=== PATIENT | male | born 1955 | race Caucasian/White ===

== ENCOUNTER → 2021-10-15 | Outpatient (CLI) | payer MEDICAID ==
[~2021-10-15] MED LIST: ASPI81CH43
[2021-10-15 07:31] LABS: Basophils # (auto) 0 10 ^3/uL (0-0.2); Basophils % (auto) 0.5 % (0.0-2.0); Eosinophils # (auto) 0.1 10 ^3/uL (0-0.8); Eosinophils % (auto) 1.6 % (0.0-7.0); Hematocrit 46.3 % (41.0-53.0); Hemoglobin 16.6 g/dL (13.5-17.5); Lymphocytes # (auto) 2.1 10 ^3/uL (0.4-5.4); Lymphocytes % (auto) 29.8 % (10.0-50.0); Mean Corpuscular Hemoglobin 33.3 pg (28.0-32.0); Mean Corpuscular Hgb Conc. 35.9 g/dL (32.0-36.0); Mean Corpuscular Volume 92.7 fL (80.0-100.0); Monocytes # (auto) 0.6 10 ^3/uL (0-1.3); Monocytes % (auto) 9.1 % (0.0-12.0); Neutrophils # (auto) 4.1 10 ^3/uL (1.6-8.6); Nucleated Red Blood Cells % 0.2 %; Red Blood Cells 4.99 10^6/uL (4.5-5.90); Red Cell Distribution Width 12.8 % (11.8-14.3)
[2021-10-15 08:53] LABS: Albumin 3.7 g/dL (3.4-5.0); Calcium 8.9 mg/dL (8.5-10.1); Potassium 3.5 mmol/L (3.5-5.1)
[2021-10-15 08:58] LABS: BUN/Creatinine Ratio 17.7; Bilirubin, Total 0.8 mg/dL (0.2-1.0); Total Protein 8.4 g/dL (6.4-8.2)
== END | disposition home or self-care (01) ==
LOC: LAB 06:41
PROVIDERS: ATTEND Student in an Organized Health Care Education/Training Program
DX: Z00.00 Encounter for general adult medical examination without abnormal findings (principal); I10 Essential (primary) hypertension
CPT/HCPCS: 36415; 80053; 80061; 83036; 84153; 85025

== ENCOUNTER → 2022-01-04 | Outpatient (CLI) | payer MEDICAID | END | disposition home or self-care (01) | LOC: LAB 08:57 | PROVIDERS: ATTEND Student in an Organized Health Care Education/Training Program | DX: R74.01 Elevation of levels of liver transaminase levels (principal) | CPT/HCPCS: 36415; 80074 ==

== ENCOUNTER 2022-05-08 11:08 | Outpatient (CLI) | payer OTHER, MEDICAID ==
[~2022-05-08] VITALS: Ht 177.8 cm; Wt 80.7 kg
[2022-05-08 11:32] LABS: Basophils # (auto) 0.1 10 ^3/uL (0-0.2); Basophils % (auto) 0.9 % (0.0-2.0); Eosinophils # (auto) 0.2 10 ^3/uL (0-0.8); Eosinophils % (auto) 2.4 % (0.0-7.0); Hematocrit 43.6 % (41.0-53.0); Hemoglobin 14.7 g/dL (13.5-17.5); Lymphocytes # (auto) 1.8 10 ^3/uL (0.4-5.4); Lymphocytes % (auto) 27.3 % (10.0-50.0); Mean Corpuscular Hemoglobin 30.9 pg (28.0-32.0); Mean Corpuscular Hgb Conc. 33.8 g/dL (32.0-36.0); Mean Corpuscular Volume 91.2 fL (80.0-100.0); Monocytes # (auto) 0.7 10 ^3/uL (0-1.3); Monocytes % (auto) 10.9 % (0.0-12.0); Neutrophils # (auto) 3.8 10 ^3/uL (1.6-8.6); Neutrophils % (auto) 58.5 % (37.0-80.0); Nucleated Red Blood Cells % 0.1 %; Red Blood Cells 4.78 10^6/uL (4.5-5.90); Red Cell Distribution Width 13.4 % (11.8-14.3); White Blood Cell 6.6 10^3/uL (4.4-10.8)
[2022-05-08 11:43] LABS: INR 1.06 (0.9-1.15); Partial Thromboplastin Time 30.5 sec (24.6-33.4)
[2022-05-08 12:04] LABS: Albumin 3.6 g/dL (3.4-5.0); BUN/Creatinine Ratio 16.7; Calcium 8.3 mg/dL (8.5-10.1); Potassium 3.6 mmol/L (3.5-5.1)
[2022-05-08 12:07] LABS: Bilirubin, Total 0.5 mg/dL (0.2-1.0); Total Protein 8.1 g/dL (6.4-8.2)
[2022-05-09] MEDS ORDERED: AMLO-496 PO (10:50)
[2022-05-09] MEDS ORDERED: ROSU40TA PO (10:50)
[2022-05-09] MEDS ORDERED: ALBUAER3 IN (10:50)
[2022-06-21] MEDS ORDERED: diphenhdrAMINE HCL 50 MG/1 ML VL IV ONE ×2 (14:50→14:52)
[2022-06-21] MEDS ORDERED: fentaNYL CITRATE 100 MCG/2 ML VL IV ONE ×3 (14:50→15:10)
[2022-06-21] MEDS ORDERED: MIDAZOLAM HCL 5 MG/ML-1ML VIAL IV ONE ×3 (14:50→15:10)
[2022-06-21 15:55] VITALS: BP 129/69
== END 2022-05-08 11:22 | disposition home or self-care (01) ==
LOC: LAB 11:08 → EDSTATUS 05-10 12:30
PROVIDERS: ATTEND Internal Medicine Gastroenterology
DX: R19.5 Other fecal abnormalities (principal); D69.9 Hemorrhagic condition, unspecified; E83.10 Disorder of iron metabolism, unspecified; Z01.812 Encounter for preprocedural laboratory examination; Z20.822 Contact with and (suspected) exposure to COVID-19
CPT/HCPCS: 36415; 80053; 85025; 85610; 85730; U0003

== ENCOUNTER → 2022-06-21 | Day surgery (SDC) | payer OTHER, MEDICAID ==
[2022-06-19 12:36] LABS: Basophils # (auto) 0 10 ^3/uL (0-0.2); Basophils % (auto) 0.4 % (0.0-2.0); Eosinophils # (auto) 0.2 10 ^3/uL (0-0.8); Eosinophils % (auto) 2.3 % (0.0-7.0); Hematocrit 43.6 % (41.0-53.0); Hemoglobin 14.7 g/dL (13.5-17.5); Lymphocytes # (auto) 2.1 10 ^3/uL (0.4-5.4); Lymphocytes % (auto) 29.9 % (10.0-50.0); Mean Corpuscular Hemoglobin 30.4 pg (28.0-32.0); Mean Corpuscular Hgb Conc. 33.9 g/dL (32.0-36.0); Mean Corpuscular Volume 89.8 fL (80.0-100.0); Monocytes # (auto) 0.8 10 ^3/uL (0-1.3); Monocytes % (auto) 10.7 % (0.0-12.0); Neutrophils % (auto) 56.7 % (37.0-80.0); Nucleated Red Blood Cells % 0.1 %; Red Blood Cells 4.85 10^6/uL (4.5-5.90); Red Cell Distribution Width 13.3 % (11.8-14.3); White Blood Cell 7.1 10^3/uL (4.4-10.8)
[2022-06-19 12:50] LABS: INR 1.05 (0.9-1.15); Partial Thromboplastin Time 30.4 sec (24.6-33.4)
[2022-06-19 13:29] LABS: Albumin 3.8 g/dL (3.4-5.0); BUN/Creatinine Ratio 14.4; Bilirubin, Total 0.4 mg/dL (0.2-1.0); Calcium 9.4 mg/dL (8.5-10.1); Potassium 3.6 mmol/L (3.5-5.1); Total Protein 8.5 g/dL (6.4-8.2)
[~2022-06-21] MED LIST changes: +ALBUAER3 IN; +AMLO-496 PO; +FLUMAZENIL 0.1 MG/ML INJ 10ML MDV IV ONE; +NALOXONE HCL 0.4 MG/ML VIAL ONE; +ROSU40TA PO; +SODIUM CHLORIDE LOCK 10 ML ONE
[2022-06-21] MEDS: diphenhdrAMINE HCL 50 MG/1 ML VL ONE ×2 (14:50→14:52)
[2022-06-21] MEDS: fentaNYL CITRATE 100 MCG/2 ML VL ONE ×3 (14:50→15:10)
[2022-06-21] MEDS: MIDAZOLAM HCL 5 MG/ML-1ML VIAL ONE ×3 (14:50→15:10)
[2022-06-21 15:55] VITALS: BP 129/69
== END | disposition home or self-care (01) ==
LOC: GI 13:40
PROVIDERS: ATTEND Internal Medicine Gastroenterology
DX: R19.5 Other fecal abnormalities (principal); K64.0 First degree hemorrhoids; Q27.39 Arteriovenous malformation, other site; I10 Essential (primary) hypertension; Z88.2 Allergy status to sulfonamides; Z98.890 Other specified postprocedural states; K63.5 Polyp of colon; Z20.822 Contact with and (suspected) exposure to COVID-19
CPT/HCPCS: 36415; 45385; 80053; 82962; 85025; 85610; 85730; 88305; J1200; J2250; J3010; U0003; 99152; 99153

== ENCOUNTER → 2022-12-05 | Outpatient (CLI) | payer OTHER, MEDICAID ==
[~2022-12-05] MED LIST changes: -FLUMAZENIL 0.1 MG/ML INJ 10ML MDV IV ONE; -NALOXONE HCL 0.4 MG/ML VIAL ONE; -SODIUM CHLORIDE LOCK 10 ML ONE
[2022-12-05 07:06] LABS: Basophils # (auto) 0 10 ^3/uL (0-0.2); Eosinophils # (auto) 0.2 10 ^3/uL (0-0.8); Eosinophils % (auto) 3.2 % (0.0-7.0); Lymphocytes # (auto) 2.2 10 ^3/uL (0.4-5.4); Monocytes # (auto) 0.7 10 ^3/uL (0-1.3); Neutrophils # (auto) 2.8 10 ^3/uL (1.6-8.6); Nucleated Red Blood Cells % 0.1 %
[2022-12-05 07:08] LABS: Basophils % (auto) 0.5 % (0.0-2.0); Hematocrit 37.8 % (41.0-53.0); Hemoglobin 12.5 g/dL (13.5-17.5); Lymphocytes % (auto) 37.5 % (10.0-50.0); Mean Corpuscular Hemoglobin 25.9 pg (28.0-32.0); Mean Corpuscular Hgb Conc. 33.1 g/dL (32.0-36.0); Mean Corpuscular Volume 78.3 fL (80.0-100.0); Monocytes % (auto) 11.1 % (0.0-12.0); Neutrophils % (auto) 47.7 % (37.0-80.0); Red Blood Cells 4.83 10^6/uL (4.5-5.90); Red Cell Distribution Width 15.2 % (11.8-14.3); White Blood Cell 5.9 10^3/uL (4.4-10.8)
[2022-12-05 07:24] LABS: INR 1.07 (0.9-1.15)
[2022-12-05 08:07] LABS: Albumin 3.7 g/dL (3.4-5.0); Calcium 8.7 mg/dL (8.5-10.1); Potassium 3.5 mmol/L (3.5-5.1)
[2022-12-05 08:13] LABS: BUN/Creatinine Ratio 10.9 (10.0-20.0); Bilirubin, Total 0.3 mg/dL (0.2-1.0); Total Protein 8.4 g/dL (6.4-8.2)
== END | disposition home or self-care (01) ==
LOC: LAB 06:47
PROVIDERS: ATTEND Student in an Organized Health Care Education/Training Program
DX: K74.60 Unspecified cirrhosis of liver (principal); R94.5 Abnormal results of liver function studies; R79.89 Other specified abnormal findings of blood chemistry; E79.8 Other disorders of purine and pyrimidine metabolism; F17.200 Nicotine dependence, unspecified, uncomplicated
CPT/HCPCS: 36415; 80053; 80061; 82728; 85025; 85610; 86038

== ENCOUNTER 2023-06-09 04:54 | Inpatient (IN) | payer OTHER, MEDICAID ==
[~2023-06-09] VITALS: Ht 172.7 cm; Wt 77.3 kg
[2023-06-09] VITALS (11 sets, daily range): BP systolic 100–125; BP diastolic 46–71; PULSE 81–108; RESP 15–19; TEMP 98.1–100.1; O2SAT 95–99
[~2023-06-09 04:54] MED LIST changes: -AMLO-496 PO; +AMLO1TAB23 PO; -ROSU40TA PO; +ROSU40TA81 PO
[2023-06-09 07:54] LABS: Basophils # (auto) 0 10 ^3/uL (0-0.2); Basophils % (auto) 0.3 % (0.0-2.0); Eosinophils # (auto) 0 10 ^3/uL (0-0.8); Eosinophils % (auto) 0.1 % (0.0-7.0); Lymphocytes # (auto) 0.6 10 ^3/uL (0.4-5.4); Nucleated Red Blood Cells % 0.1 %; Red Cell Distribution Width 18.5 % (11.8-14.3); White Blood Cell 6.3 10^3/uL (4.4-10.8)
[2023-06-09 07:56] LABS: Hematocrit 23.4 % (41.0-53.0); Lymphocytes % (auto) 8.9 % (10.0-50.0); Mean Corpuscular Hemoglobin 20.3 pg (28.0-32.0); Mean Corpuscular Hgb Conc. 29.9 g/dL (32.0-36.0); Mean Corpuscular Volume 67.7 fL (80.0-100.0); Monocytes % (auto) 15.2 % (0.0-12.0); Neutrophils # (auto) 4.8 10 ^3/uL (1.6-8.6); Neutrophils % (auto) 75.5 % (37.0-80.0); Red Blood Cells 3.45 10^6/uL (4.5-5.90)
[2023-06-09] MEDS ORDERED: IBU600T PO (08:07)
[2023-06-09 08:21] LABS: Alanine Aminotransferase 51 U/L (7-40); Albumin 4.4 g/dL (3.2-4.8); Alkaline Phosphatase 167 U/L (46-116); Anion Gap 8 (5-15); Aspartate Aminotransferase 50 U/L (13-40); BUN/Creatinine Ratio 7.8 (10.0-20.0); Bilirubin, Total 0.5 mg/dL (0.2-1.0); Blood Urea Nitrogen 8 mg/dL (9-23); Calcium 8.7 mg/dL (8.5-10.1); Carbon Dioxide 21 mmol/L (20-30); Chloride 107 mmol/L (98-107); Glucose 103 mg/dL (74-106); Potassium 3.5 mmol/L (3.5-5.1); Sodium 136 mmol/L (136-145); Total Protein 7.7 g/dL (5.7-8.2)
[2023-06-09 09:32] LABS: Hypochromia Marked; Platelet Estimate Decreased
[2023-06-09] MEDS ORDERED: cefTRIAXone 1GM/50ML D5W 50 ML IV ONE (11:15)
[2023-06-09] MEDS ORDERED: AZITHROMYCIN 500MG/ 250ML 250 ML IV ONE (11:15)
[2023-06-09] MEDS ORDERED: IBUPROFEN 400 MG TAB PO PRN (13:00)
[2023-06-09] MEDS ORDERED: DOCUSATE SOD 100 MG CAP PO PRN (13:00)
[2023-06-09] MEDS ORDERED: amLODIPine BESYLATE 5 MG TAB PO ONE (13:00)
[2023-06-09] MEDS ORDERED: PANTOPRAZOLE 40 MG TAB PO ONE (13:00)
[2023-06-09] MEDS ORDERED: FUROSEMIDE 40 MG/4 ML VIAL IV ONE (17:15)
[2023-06-09 18:57] LABS: INR 1.13 (0.9-1.15); Partial Thromboplastin Time 30.5 SEC (24.5-34.5); Prothrombin Time 11.8 sec (9.3-11.8)
[2023-06-09] MEDS: ACETAMINOPHEN 500 MG TAB PO PRN (21:03)
[2023-06-09] MEDS: ATORVASTATIN 20 MG TAB PO SCH (22:14)
[2023-06-10 01:50] VITALS: BP 113/62; PULSE 72; RESP 17; TEMP 98
[2023-06-10 02:05] VITALS: BP 108/65; PULSE 71; RESP 16; TEMP 98
[2023-06-10 04:04] LABS: Amphetamine Screen, Urine Neg (NEGATIVE); Barbiturate Scree,Urine Neg (NEGATIVE); Benzodiazephine Screen, Urine Neg (NEGATIVE); Cocaine Screen, Urine Neg (NEGATIVE)
[2023-06-10 04:05] LABS: Cannabinoid Screen, Urine Neg (NEGATIVE); Opiate Scree,Urine Neg (NEGATIVE); Phencyclidine Screen, Urine Neg (NEGATIVE)
[2023-06-10 05:58] LABS: Hematocrit 27.3 % (41.0-53.0); Hemoglobin 8.6 g/dL (13.5-17.5)
[2023-06-10 06:01] LABS: Mean Corpuscular Hemoglobin 22.1 pg (28.0-32.0); Mean Corpuscular Hgb Conc. 31.5 g/dL (32.0-36.0); Mean Corpuscular Volume 70.2 fL (80.0-100.0); Red Blood Cells 3.89 10^6/uL (4.5-5.90); White Blood Cell 5.1 10^3/uL (4.4-10.8)
[2023-06-10 06:27] LABS: Alanine Aminotransferase 47 U/L (7-40); Albumin 3.9 g/dL (3.2-4.8); Alkaline Phosphatase 94 U/L (46-116); Anion Gap 8 (5-15); Aspartate Aminotransferase 57 U/L (13-40); BUN/Creatinine Ratio 11.8 (10.0-20.0); Blood Urea Nitrogen 10 mg/dL (9-23); Calcium 8.2 mg/dL (8.7-10.4); Carbon Dioxide 22 mmol/L (20-30); Chloride 108 mmol/L (98-107); Glucose 95 mg/dL (74-106); Potassium 3.2 mmol/L (3.5-5.1); Sodium 138 mmol/L (136-145)
[2023-06-10 06:28] LABS: Total Protein 6.9 g/dL (5.7-8.2)
[2023-06-10 07:56] LABS: Red Cell Distribution Width 20.7 % (11.8-14.3)
[2023-06-10 07:57] LABS: Band Neutrophils % (manual) 0; Basophils % (manual) 0 (0.0-2.0); Blast Cells 0; Metamyelocytes % 0; Myelocytes % 0; Promyelocytes % 0; Reactive Lymphocytes 0
[2023-06-10 08:00] VITALS: PULSE 86; RESP 21; O2SAT 96
[2023-06-10] MEDS ORDERED: POTASSIUM CHL 20 Meq TABLET PO ONE (08:45)
[2023-06-10] MEDS: cefTRIAXone 1GM/50ML D5W 50 ML IV SCH (09:12)
[2023-06-10] MEDS ORDERED: DOXY-448 PO ×2 (09:35)
[2023-06-10] MEDS ORDERED: amLODIPine BESYLATE 5 MG TAB PO SCH (10:00)
[2023-06-10] MEDS: PANTOPRAZOLE 40 MG TAB PO SCH (10:15)
[2023-06-10] MEDS: FUROSEMIDE 40 MG/4 ML VIAL IV SCH (10:16)
[2023-06-10] MEDS: AZITHROMYCIN 500MG/ 250ML 250 ML IV SCH (10:17)
[2023-06-10] MEDS: amLODIPine BESYLATE 5 MG TAB PO SCH (10:17)
[2023-06-10 14:02] LABS: Eosinophils % (manual) 1 (0-7); Lymphocytes % (manual) 25 (10.0-50.0); Monocytes % (manual) 14 (0-12); Platelet Estimate Decreased
[2023-06-10] MEDS: ACETAMINOPHEN 500 MG TAB PO PRN (19:39)
[2023-06-10] MEDS: ATORVASTATIN 20 MG TAB PO SCH (22:19)
[2023-06-11 00:25] LABS: Rapid Influenza A Negative (Negative); Rapid Influenza B Negative (Negative)
[2023-06-11 00:28] LABS: COVID19 ANTIGEN SOFIA FIA POSITIVE (NEGATIVE)
[2023-06-11 08:00] VITALS: PULSE 79; RESP 16; TEMP 98.7; O2SAT 97
[2023-06-11] MEDS: cefTRIAXone 1GM/50ML D5W 50 ML IV SCH (09:18)
[2023-06-11] MEDS: ACETAMINOPHEN 500 MG TAB PO PRN (09:19)
[2023-06-11] MEDS: amLODIPine BESYLATE 5 MG TAB PO SCH (10:01)
[2023-06-11] MEDS: FUROSEMIDE 40 MG/4 ML VIAL IV SCH (10:01)
[2023-06-11] MEDS: AZITHROMYCIN 500MG/ 250ML 250 ML IV SCH (10:01)
[2023-06-11] MEDS: PANTOPRAZOLE 40 MG TAB PO SCH (10:03)
[2023-06-11 12:00] VITALS: BP 120/69; PULSE 75; RESP 16; O2SAT 96
[2023-06-12 09:35] LABS: Hepatitis B Core Total AB Negative (Negative)
[2023-06-12 10:53] LABS: Hepatitis A Total Antibody Positive (Negative); Hepatitis B Surface Antibody Negative (Negative); Hepatitis B Surface Antigen Negative (Negative)
[2023-06-17 08:03] LABS: Hepatitis C Antibody Positive (Negative)
== END 2023-06-11 12:37 | disposition home or self-care (01) | DRG 551 ==
LOC: EDBD 04:54 → ER 04:54 → TELE 12:49
PROVIDERS: ADMIT Internal Medicine Pulmonary Disease; ATTEND Student in an Organized Health Care Education/Training Program
PROC: 30233N1 Transfusion of Nonautologous Red Blood Cells into Peripheral Vein, Percutaneous Approach (ICD-10-PCS; principal; 2023-06-09)
DX: M48.14 Ankylosing hyperostosis [Forestier], thoracic region (principal); J12.82 Pneumonia due to coronavirus disease 2019; U07.1 COVID-19; J15.69 Pneumonia due to other Gram-negative bacteria; J15.9 Unspecified bacterial pneumonia; I10 Essential (primary) hypertension; F17.210 Nicotine dependence, cigarettes, uncomplicated; D50.9 Iron deficiency anemia, unspecified; E87.6 Hypokalemia; E78.5 Hyperlipidemia, unspecified; Z88.2 Allergy status to sulfonamides
CPT/HCPCS: 36415; 71045; 72128; 80053; 80307; 80320; 83605; 83735; 83880; 84484; 85007; 85025; 85027; 85379; 85610; 85730; 86704; 86706; 86708; 86803; 86850; 86900; 86901; 86920; 87040; 87340; 87426; 87804; 93306; 96365; 97110; 97116; 97163; G0378; J0696

== ENCOUNTER 2023-06-18 08:53 | Inpatient (IN) | payer OTHER, MEDICAID ==
[~2023-06-18] VITALS: Ht 177.8 cm; Wt 84.2 kg
[2023-06-18] VITALS (10 sets, daily range): BP systolic 115–137; BP diastolic 63–70; PULSE 72–87; RESP 11–18; TEMP 98–98.5; O2SAT 96–99
[~2023-06-18 08:53] MED LIST changes: +DOXY-448 PO; +IBU600T PO
[2023-06-18 09:36] LABS: Basophils # (auto) 0 10 ^3/uL (0-0.2); Eosinophils # (auto) 0.1 10 ^3/uL (0-0.8); Mean Corpuscular Volume 71.2 fL (80.0-100.0); Monocytes # (auto) 0.7 10 ^3/uL (0-1.3)
[2023-06-18 09:37] LABS: Basophils % (auto) 0.4 % (0.0-2.0); Eosinophils % (auto) 1.5 % (0.0-7.0); Hematocrit 20.9 % (41.0-53.0); Lymphocytes # (auto) 1.1 10 ^3/uL (0.4-5.4); Mean Corpuscular Hemoglobin 21.7 pg (28.0-32.0); Mean Corpuscular Hgb Conc. 30.5 g/dL (32.0-36.0); Monocytes % (auto) 12.6 % (0.0-12.0); Neutrophils # (auto) 3.6 10 ^3/uL (1.6-8.6); Neutrophils % (auto) 65.5 % (37.0-80.0); Red Blood Cells 2.93 10^6/uL (4.5-5.90); White Blood Cell 5.4 10^3/uL (4.4-10.8)
[2023-06-18 09:48] LABS: Red Cell Distribution Width 21.2 % (11.8-14.3)
[2023-06-18 09:50] LABS: Hemoglobin 6.4 g/dL (13.5-17.5)
[2023-06-18 10:18] LABS: Alanine Aminotransferase 46 U/L (7-40); Alkaline Phosphatase 113 U/L (46-116); Anion Gap 6 (5-15); Aspartate Aminotransferase 53 U/L (13-40); BUN/Creatinine Ratio 11.8 (10.0-20.0); Blood Urea Nitrogen 11 mg/dL (9-23); Carbon Dioxide 25 mmol/L (20-30); Chloride 110 mmol/L (98-107); Glucose 135 mg/dL (74-106); Potassium 3.5 mmol/L (3.5-5.1); Sodium 141 mmol/L (136-145)
[2023-06-18 10:19] LABS: Bilirubin, Total 0.4 mg/dL (0.2-1.0)
[2023-06-18] MEDS ORDERED: PANTOPRAZOLE 80 MG in SODIUM CHL 0.9% 100 ML IV ONE ×2 (10:45→11:30)
[2023-06-18] MEDS ORDERED: PANTOPRAZOLE 40mg/50ML NS AE 50 ML IV ONE (10:45)
[2023-06-18] MEDS ORDERED: OCTREOTIDE ACETATE 100 MCG in SODIUM CHL 0.9% 50 ML IV ONE (10:45)
[2023-06-18 10:52] LABS: Hypochromia Moderate; Platelet Estimate Adequate
[2023-06-18 10:53] LABS: Anisocytosis Slight; Ovalocytes MODERATE; Tear Drop Cells MODERATE
[2023-06-18 11:28] LABS: INR 1.1 (0.9-1.15); Prothrombin Time 11.5 sec (9.3-11.8)
[2023-06-18] MEDS ORDERED: NITROGLYCERIN 0.4 MG SL TAB SL PRN (11:30)
[2023-06-18] MEDS ORDERED: MORPHINE SULFATE INJ 2 MG/ml SYRG IV PRN (11:30)
[2023-06-18 11:34] LABS: COVID19 ANTIGEN SOFIA FIA NEGATIVE (NEGATIVE)
[2023-06-18] MEDS: SODIUM CHLORIDE 0.9% 1,000 ML IV SCH (11:36)
[2023-06-18] MEDS ORDERED: NICOTINE 14 MG/24HR TOPICAL PATCH TD ONE (12:15)
[2023-06-18] MEDS ORDERED: ALBUTEROL MEDNEB 2.5 mg/3ml NEB NEB PRN (12:15)
[2023-06-18 13:23] LABS: Urine Bacteria NONE SEEN /hpf (None Seen); Urine Blood Negative /uL (Negative); Urine Clarity Clear (Clear); Urine Color Yellow (Yellow); Urine Protein, UAD Negative (Negative); Urine Specific Gravity 1.012 (1.001-1.035); Urine Urobilinogen Normal (Negative); Urine WBC <1 /hpf (0 - 3)
[2023-06-18 13:36] LABS: Folate (Folic Acid) 14.44 ng/mL (>5.38)
[2023-06-18] MEDS: OCTREOTIDE ACETATE 500 MCG in SODIUM CHL 0.9% 99 ML IV SCH (17:38)
[2023-06-19] VITALS (8 sets, daily range): BP systolic 108–128; BP diastolic 50–70; PULSE 70–89; RESP 16–20; TEMP 97.8–98.6; O2SAT 95–100
[2023-06-19 00:26] LABS: Basophils # (auto) 0 10 ^3/uL (0-0.2); Eosinophils # (auto) 0.1 10 ^3/uL (0-0.8); Hemoglobin 8.1 g/dL (13.5-17.5); Lymphocytes # (auto) 1.4 10 ^3/uL (0.4-5.4); Mean Corpuscular Volume 76.3 fL (80.0-100.0); Monocytes # (auto) 0.8 10 ^3/uL (0-1.3); Neutrophils # (auto) 3.7 10 ^3/uL (1.6-8.6); Nucleated Red Blood Cells % 0.1 %
[2023-06-19 00:28] LABS: Basophils % (auto) 0.4 % (0.0-2.0); Eosinophils % (auto) 2.1 % (0.0-7.0); Hematocrit 25.9 % (41.0-53.0); Lymphocytes % (auto) 22.8 % (10.0-50.0); Mean Corpuscular Hemoglobin 23.8 pg (28.0-32.0); Mean Corpuscular Hgb Conc. 31.2 g/dL (32.0-36.0); Monocytes % (auto) 13.5 % (0.0-12.0); Neutrophils % (auto) 61.2 % (37.0-80.0); Red Blood Cells 3.39 10^6/uL (4.5-5.90)
[2023-06-19 00:33] LABS: Red Cell Distribution Width 22.3 % (11.8-14.3)
[2023-06-19] MEDS: SODIUM CHLORIDE 0.9% 1,000 ML IV SCH ×2 (03:27→21:46)
[2023-06-19 07:06] LABS: Basophils # (auto) 0 10 ^3/uL (0-0.2); Eosinophils # (auto) 0.1 10 ^3/uL (0-0.8); Lymphocytes # (auto) 1.7 10 ^3/uL (0.4-5.4); Mean Corpuscular Hemoglobin 23.4 pg (28.0-32.0); Nucleated Red Blood Cells % 0.1 %
[2023-06-19 07:08] LABS: Basophils % (auto) 0.7 % (0.0-2.0); Eosinophils % (auto) 2.1 % (0.0-7.0); Hematocrit 27.3 % (41.0-53.0); Hemoglobin 8.4 g/dL (13.5-17.5); Lymphocytes % (auto) 25.6 % (10.0-50.0); Mean Corpuscular Volume 75.7 fL (80.0-100.0); Monocytes # (auto) 0.8 10 ^3/uL (0-1.3); Monocytes % (auto) 11.5 % (0.0-12.0); Neutrophils % (auto) 60.1 % (37.0-80.0); White Blood Cell 6.6 10^3/uL (4.4-10.8)
[2023-06-19 07:14] LABS: Red Cell Distribution Width 22.4 % (11.8-14.3)
[2023-06-19 07:17] LABS: Alanine Aminotransferase 50 U/L (7-40); Albumin 3.8 g/dL (3.2-4.8); Alkaline Phosphatase 96 U/L (46-116); Anion Gap 8 (5-15); Aspartate Aminotransferase 61 U/L (13-40); BUN/Creatinine Ratio 8.7 (10.0-20.0); Bilirubin, Total 0.8 mg/dL (0.2-1.0); Blood Urea Nitrogen 8 mg/dL (9-23); Calcium 8.7 mg/dL (8.5-10.1); Carbon Dioxide 22 mmol/L (20-30); Chloride 112 mmol/L (98-107); Glucose 97 mg/dL (74-106); Sodium 142 mmol/L (136-145); Total Protein 6.8 g/dL (5.7-8.2)
[2023-06-19 08:15] LABS: Anisocytosis Slight; Hypochromia Slight; Platelet Estimate Adequate
[2023-06-19 08:16] LABS: Polychromasia Slight; Tear Drop Cells FEW
[2023-06-19] MEDS ORDERED: ASPirin 81 mg TAB PO SCH (10:00)
[2023-06-19] MEDS: amLODIPine BESYLATE 5 MG TAB PO SCH (11:30)
[2023-06-19] MEDS: PANTOPRAZOLE 40 MG/10 ML VIAL INJ IV SCH ×2 (14:19→21:45)
[2023-06-19] MEDS: NICOTINE 14 MG/24HR TOPICAL PATCH TD SCH (14:20)
[2023-06-19] MEDS: OCTREOTIDE ACETATE 500 MCG in SODIUM CHL 0.9% 99 ML IV SCH (14:21)
[2023-06-19 14:32] LABS: Basophils # (auto) 0 10 ^3/uL (0-0.2); Eosinophils # (auto) 0.1 10 ^3/uL (0-0.8); Hematocrit 26.8 % (41.0-53.0); Hemoglobin 8.2 g/dL (13.5-17.5); Lymphocytes # (auto) 1.5 10 ^3/uL (0.4-5.4); Lymphocytes % (auto) 22.3 % (10.0-50.0); Neutrophils # (auto) 4.3 10 ^3/uL (1.6-8.6); Nucleated Red Blood Cells % 0.1 %; Red Blood Cells 3.57 10^6/uL (4.5-5.90); White Blood Cell 6.8 10^3/uL (4.4-10.8)
[2023-06-19 14:34] LABS: Basophils % (auto) 0.6 % (0.0-2.0); Mean Corpuscular Hgb Conc. 30.7 g/dL (32.0-36.0); Monocytes # (auto) 0.9 10 ^3/uL (0-1.3); Monocytes % (auto) 12.8 % (0.0-12.0); Neutrophils % (auto) 62.3 % (37.0-80.0)
[2023-06-19 14:35] LABS: Red Cell Distribution Width 23.1 % (11.8-14.3)
[2023-06-19] MEDS: SUCRALFATE 1 GM/10 ML ORAL SUSP PO SCH ×2 (18:40→21:46)
[2023-06-19 22:56] LABS: Basophils # (auto) 0 10 ^3/uL (0-0.2); Hemoglobin 8.3 g/dL (13.5-17.5); Monocytes # (auto) 0.9 10 ^3/uL (0-1.3)
[2023-06-19 22:59] LABS: Basophils % (auto) 0.4 % (0.0-2.0); Eosinophils # (auto) 0.2 10 ^3/uL (0-0.8); Eosinophils % (auto) 1.9 % (0.0-7.0); Hematocrit 26.5 % (41.0-53.0); Lymphocytes # (auto) 1.7 10 ^3/uL (0.4-5.4); Lymphocytes % (auto) 21.1 % (10.0-50.0); Mean Corpuscular Hemoglobin 23.8 pg (28.0-32.0); Mean Corpuscular Hgb Conc. 31.2 g/dL (32.0-36.0); Mean Corpuscular Volume 76.3 fL (80.0-100.0); Monocytes % (auto) 11.1 % (0.0-12.0); Neutrophils # (auto) 5.4 10 ^3/uL (1.6-8.6); Neutrophils % (auto) 65.5 % (37.0-80.0); Nucleated Red Blood Cells % 0.1 %; Red Blood Cells 3.48 10^6/uL (4.5-5.90); White Blood Cell 8.2 10^3/uL (4.4-10.8)
[2023-06-19 23:00] LABS: Red Cell Distribution Width 22.2 % (11.8-14.3)
[2023-06-20] VITALS (12 sets, daily range): BP systolic 115–122; BP diastolic 62–68; PULSE 68–101; RESP 17–21; TEMP 97.4–98.7; O2SAT 92–98
[2023-06-20] MEDS: OCTREOTIDE ACETATE 500 MCG in SODIUM CHL 0.9% 99 ML IV SCH ×2 (01:36→13:08)
[2023-06-20 06:36] LABS: Basophils # (auto) 0 10 ^3/uL (0-0.2); Basophils % (auto) 0.4 % (0.0-2.0); Eosinophils # (auto) 0.1 10 ^3/uL (0-0.8); Hemoglobin 8.5 g/dL (13.5-17.5); Lymphocytes # (auto) 1.4 10 ^3/uL (0.4-5.4); Nucleated Red Blood Cells % 0.1 %
[2023-06-20 06:40] LABS: Hematocrit 27.2 % (41.0-53.0); Lymphocytes % (auto) 19.8 % (10.0-50.0); Mean Corpuscular Hemoglobin 23.6 pg (28.0-32.0); Mean Corpuscular Hgb Conc. 31.3 g/dL (32.0-36.0); Mean Corpuscular Volume 75.6 fL (80.0-100.0); Monocytes # (auto) 0.8 10 ^3/uL (0-1.3); Monocytes % (auto) 11.3 % (0.0-12.0); Neutrophils # (auto) 4.8 10 ^3/uL (1.6-8.6); Neutrophils % (auto) 66.5 % (37.0-80.0); White Blood Cell 7.2 10^3/uL (4.4-10.8)
[2023-06-20 06:43] LABS: Red Cell Distribution Width 22.5 % (11.8-14.3)
[2023-06-20] MEDS: SUCRALFATE 1 GM/10 ML ORAL SUSP PO SCH ×4 (06:47→21:19)
[2023-06-20] MEDS: PANTOPRAZOLE 40 MG/10 ML VIAL INJ IV SCH ×2 (09:09→21:19)
[2023-06-20] MEDS: amLODIPine BESYLATE 5 MG TAB PO SCH (09:09)
[2023-06-20] MEDS: NICOTINE 14 MG/24HR TOPICAL PATCH TD SCH (09:12)
[2023-06-20] MEDS ORDERED: NALOXONE HCL 0.4 MG/ML VIAL ONE (10:17)
[2023-06-20] MEDS ORDERED: FLUMAZENIL 0.1 MG/ML INJ 10ML MDV IV ONE (10:18)
[2023-06-20] MEDS ORDERED: LIDOCAINE VISCOUS 2% 15ML UD ONE (10:18)
[2023-06-20] MEDS ORDERED: SODIUM CHLORIDE LOCK 10 ML ONE (10:18)
[2023-06-20 14:08] LABS: Basophils # (auto) 0 10 ^3/uL (0-0.2); Basophils % (auto) 0.4 % (0.0-2.0); Eosinophils # (auto) 0.1 10 ^3/uL (0-0.8); Lymphocytes # (auto) 1.5 10 ^3/uL (0.4-5.4); Nucleated Red Blood Cells % 0.1 %
[2023-06-20 14:09] LABS: Eosinophils % (auto) 1.4 % (0.0-7.0); Hematocrit 29.3 % (41.0-53.0); Mean Corpuscular Hemoglobin 23.1 pg (28.0-32.0); Mean Corpuscular Hgb Conc. 30.6 g/dL (32.0-36.0); Mean Corpuscular Volume 75.7 fL (80.0-100.0); Monocytes # (auto) 0.9 10 ^3/uL (0-1.3); Monocytes % (auto) 11.7 % (0.0-12.0); Neutrophils # (auto) 5.5 10 ^3/uL (1.6-8.6); Neutrophils % (auto) 68.5 % (37.0-80.0); Red Blood Cells 3.87 10^6/uL (4.5-5.90); Red Cell Distribution Width 22.9 % (11.8-14.3); White Blood Cell 8.1 10^3/uL (4.4-10.8)
[2023-06-20] MEDS: fentaNYL CITRATE 100 MCG/2 ML VL ONE ×2 (15:42→15:45)
[2023-06-20] MEDS: MIDAZOLAM HCL 5 MG/ML-1ML VIAL ONE ×2 (15:42→15:45)
[2023-06-20] MEDS: diphenhdrAMINE HCL 50 MG/1 ML VL ONE ×2 (15:42→15:43)
[2023-06-20] MEDS: SODIUM CHLORIDE 0.9% 1,000 ML IV SCH (16:43)
[2023-06-20 22:16] LABS: Basophils # (auto) 0 10 ^3/uL (0-0.2); Eosinophils # (auto) 0.1 10 ^3/uL (0-0.8); Lymphocytes # (auto) 1.3 10 ^3/uL (0.4-5.4); Monocytes # (auto) 0.9 10 ^3/uL (0-1.3); Nucleated Red Blood Cells % 0.1 %
[2023-06-20 22:18] LABS: Basophils % (auto) 0.4 % (0.0-2.0); Hematocrit 26.5 % (41.0-53.0); Hemoglobin 8.3 g/dL (13.5-17.5); Lymphocytes % (auto) 18.5 % (10.0-50.0); Mean Corpuscular Hemoglobin 23.4 pg (28.0-32.0); Mean Corpuscular Hgb Conc. 31.2 g/dL (32.0-36.0); Monocytes % (auto) 13.3 % (0.0-12.0); Neutrophils # (auto) 4.6 10 ^3/uL (1.6-8.6); Neutrophils % (auto) 66.8 % (37.0-80.0); Red Blood Cells 3.53 10^6/uL (4.5-5.90); White Blood Cell 6.9 10^3/uL (4.4-10.8)
[2023-06-21] VITALS (7 sets, daily range): BP systolic 108–129; BP diastolic 60–75; PULSE 68–75; RESP 16–20; TEMP 97.5–98.7; O2SAT 92–96
[2023-06-21] MEDS: OCTREOTIDE ACETATE 500 MCG in SODIUM CHL 0.9% 99 ML IV SCH ×4 (00:21→22:17)
[2023-06-21] MEDS: SODIUM CHLORIDE 0.9% 1,000 ML IV SCH (06:10)
[2023-06-21] MEDS: SUCRALFATE 1 GM/10 ML ORAL SUSP PO SCH ×4 (06:17→21:03)
[2023-06-21 07:25] LABS: Basophils # (auto) 0 10 ^3/uL (0-0.2); Eosinophils # (auto) 0.1 10 ^3/uL (0-0.8); Hemoglobin 8.7 g/dL (13.5-17.5); Monocytes # (auto) 0.9 10 ^3/uL (0-1.3); Nucleated Red Blood Cells % 0.1 %
[2023-06-21 07:28] LABS: Basophils % (auto) 0.4 % (0.0-2.0); Eosinophils % (auto) 1.2 % (0.0-7.0); Lymphocytes # (auto) 1.3 10 ^3/uL (0.4-5.4); Lymphocytes % (auto) 18.9 % (10.0-50.0); Mean Corpuscular Hemoglobin 23.9 pg (28.0-32.0); Mean Corpuscular Hgb Conc. 31.2 g/dL (32.0-36.0); Mean Corpuscular Volume 76.7 fL (80.0-100.0); Monocytes % (auto) 13.1 % (0.0-12.0); Neutrophils # (auto) 4.6 10 ^3/uL (1.6-8.6); Neutrophils % (auto) 66.4 % (37.0-80.0); Red Blood Cells 3.65 10^6/uL (4.5-5.90); Red Cell Distribution Width 23.2 % (11.8-14.3)
[2023-06-21] MEDS: NICOTINE 14 MG/24HR TOPICAL PATCH TD SCH (08:47)
[2023-06-21] MEDS: amLODIPine BESYLATE 5 MG TAB PO SCH (08:48)
[2023-06-21] MEDS: PANTOPRAZOLE 40 MG/10 ML VIAL INJ IV SCH ×2 (08:48→21:03)
[2023-06-22 05:00] VITALS: BP 102/54; PULSE 70; RESP 17; TEMP 98.1; O2SAT 95
[2023-06-22] MEDS: SUCRALFATE 1 GM/10 ML ORAL SUSP PO SCH ×2 (06:01→11:14)
[2023-06-22 07:01] LABS: Basophils # (auto) 0 10 ^3/uL (0-0.2); Eosinophils # (auto) 0.1 10 ^3/uL (0-0.8); Hemoglobin 8.4 g/dL (13.5-17.5); Lymphocytes # (auto) 1.4 10 ^3/uL (0.4-5.4); Monocytes # (auto) 0.9 10 ^3/uL (0-1.3); Neutrophils # (auto) 4.8 10 ^3/uL (1.6-8.6); Nucleated Red Blood Cells % 0.1 %; White Blood Cell 7.2 10^3/uL (4.4-10.8)
[2023-06-22 07:04] LABS: Basophils % (auto) 0.5 % (0.0-2.0); Eosinophils % (auto) 1.7 % (0.0-7.0); Hematocrit 27.1 % (41.0-53.0); Lymphocytes % (auto) 19.1 % (10.0-50.0); Mean Corpuscular Hemoglobin 23.2 pg (28.0-32.0); Monocytes % (auto) 12.2 % (0.0-12.0); Neutrophils % (auto) 66.5 % (37.0-80.0); Red Blood Cells 3.62 10^6/uL (4.5-5.90); Red Cell Distribution Width 23.3 % (11.8-14.3)
[2023-06-22 08:00] VITALS: PULSE 70; PULSE 71; RESP 18; O2SAT 95
[2023-06-22 09:00] VITALS: BP 111/66; PULSE 71; RESP 18; TEMP 98.4; O2SAT 94
[2023-06-22] MEDS: amLODIPine BESYLATE 5 MG TAB PO SCH (09:16)
[2023-06-22] MEDS: OCTREOTIDE ACETATE 500 MCG in SODIUM CHL 0.9% 99 ML IV SCH (09:16)
[2023-06-22] MEDS: PANTOPRAZOLE 40 MG/10 ML VIAL INJ IV SCH (09:16)
[2023-06-22] MEDS: NICOTINE 14 MG/24HR TOPICAL PATCH TD SCH (09:17)
[2023-06-22] MEDS ORDERED: PANT40T PO (11:36)
[2023-06-22] MEDS ORDERED: LEVO500T91 PO (11:36)
[2023-06-22] MEDS ORDERED: SUCR1TAB22 OR (11:36)
== END 2023-06-22 14:12 | disposition home or self-care (01) | DRG 377 ==
LOC: ER 08:53 → TELE 11:17 → TELE-WESTW 06-19 02:24
PROVIDERS: ADMIT Nurse Practitioner Family; ATTEND Family Medicine
PROC: 30233N1 Transfusion of Nonautologous Red Blood Cells into Peripheral Vein, Percutaneous Approach (ICD-10-PCS; 2023-06-18)
PROC: 0DB68ZX Excision of Stomach, Via Natural or Artificial Opening Endoscopic, Diagnostic (ICD-10-PCS; 2023-06-20)
PROC: 0DB98ZX Excision of Duodenum, Via Natural or Artificial Opening Endoscopic, Diagnostic (ICD-10-PCS; principal; 2023-06-20 15:36)
DX: K25.4 Chronic or unspecified gastric ulcer with hemorrhage (principal); J96.01 Acute respiratory failure with hypoxia; K26.4 Chronic or unspecified duodenal ulcer with hemorrhage; I10 Essential (primary) hypertension; D63.8 Anemia in other chronic diseases classified elsewhere; E78.00 Pure hypercholesterolemia, unspecified; F17.210 Nicotine dependence, cigarettes, uncomplicated; D50.9 Iron deficiency anemia, unspecified; K44.9 Diaphragmatic hernia without obstruction or gangrene; K29.90 Gastroduodenitis, unspecified, without bleeding; Z80.0 Family history of malignant neoplasm of digestive organs; Z80.42 Family history of malignant neoplasm of prostate; Z83.3 Family history of diabetes mellitus; Z87.19 Personal history of other diseases of the digestive system; Z71.6 Tobacco abuse counseling
CPT/HCPCS: 36415; 36430; 71046; 80053; 81001; 82607; 82746; 83540; 83550; 84443; 85025; 85379; 85610; 86850; 86900; 86901; 86920; 87426; 93005; 96365; 96366; 99291; C9113; G0378; J2250; J7042

== ENCOUNTER 2023-07-08 10:44 | Inpatient (IN) | payer OTHER, MEDICAID ==
[~2023-07-08] VITALS: Ht 180.3 cm; Wt 85.7 kg
[2023-07-08] VITALS (7 sets, daily range): BP systolic 109–136; BP diastolic 52–70; PULSE 80–91; RESP 12–18; TEMP 97.9–99.1; O2SAT 98–99
[2023-07-08 12:11] LABS: Basophils # (auto) 0 10 ^3/uL (0-0.2); Eosinophils # (auto) 0.1 10 ^3/uL (0-0.8); Eosinophils % (auto) 1.4 % (0.0-7.0); Mean Corpuscular Hemoglobin 21.7 pg (28.0-32.0); Red Blood Cells 2.55 10^6/uL (4.5-5.90)
[2023-07-08 12:13] LABS: Basophils % (auto) 0.5 % (0.0-2.0); Hematocrit 18.3 % (41.0-53.0); Lymphocytes # (auto) 1.4 10 ^3/uL (0.4-5.4); Lymphocytes % (auto) 27.3 % (10.0-50.0); Mean Corpuscular Hgb Conc. 30.3 g/dL (32.0-36.0); Mean Corpuscular Volume 71.6 fL (80.0-100.0); Monocytes # (auto) 0.7 10 ^3/uL (0-1.3); Monocytes % (auto) 12.8 % (0.0-12.0); Nucleated Red Blood Cells % 0.5 %; White Blood Cell 5.2 10^3/uL (4.4-10.8)
[2023-07-08 12:17] LABS: Red Cell Distribution Width 21.9 % (11.8-14.3)
[2023-07-08 12:19] LABS: Hemoglobin 5.5 g/dL (13.5-17.5)
[2023-07-08 12:29] LABS: Alanine Aminotransferase 106 U/L (7-40); Albumin 3.9 g/dL (3.2-4.8); Alkaline Phosphatase 137 U/L (46-116); Anion Gap 8 (5-15); Aspartate Aminotransferase 99 U/L (13-40); BUN/Creatinine Ratio 9.1 (10.0-20.0); Blood Urea Nitrogen 8 mg/dL (9-23); Calcium 8.7 mg/dL (8.5-10.1); Carbon Dioxide 23 mmol/L (20-30); Chloride 108 mmol/L (98-107); Glucose 120 mg/dL (74-106); Potassium 3.1 mmol/L (3.5-5.1); Sodium 139 mmol/L (136-145)
[2023-07-08 12:30] LABS: Bilirubin, Total 0.3 mg/dL (0.2-1.0); Total Protein 7.2 g/dL (5.7-8.2)
[2023-07-08] MEDS ORDERED: POTASSIUM EFFERVESENT TAB 25 MEQ PO ONE ×2 (14:45→16:00)
[2023-07-08] MEDS ORDERED: PANTOPRAZOLE 40 MG/10 ML VIAL INJ IV ONE (15:45)
[2023-07-08] MEDS ORDERED: DOCUSATE SOD 100 MG CAP PO PRN (16:00)
[2023-07-08] MEDS ORDERED: CYANOCOBALAMIN 500 MCG TAB PO ONE (16:30)
[2023-07-08] MEDS: SODIUM CHLORIDE 0.9% 1,000 ML IV SCH (16:36)
[2023-07-08 20:12] LABS: Urine WBC None Seen /hpf (0 - 3)
[2023-07-08 20:26] LABS: Urine Bacteria NONE SEEN /hpf (None Seen); Urine Blood Negative /uL (Negative); Urine Clarity Clear (Clear); Urine Color Yellow (Yellow); Urine Protein, UAD Negative (Negative); Urine Specific Gravity 1.011 (1.001-1.035); Urine Urobilinogen Normal (Negative)
[2023-07-08] MEDS: SUCRALFATE 1 GM TAB PO SCH ×2 (20:34→22:00)
[2023-07-08] MEDS ORDERED: NICOTINE 14 MG/24HR TOPICAL PATCH TD ONE (21:00)
[2023-07-09 03:50] VITALS: BP 121/62; PULSE 86; RESP 18; TEMP 98.2
[2023-07-09] MEDS: SUCRALFATE 1 GM TAB PO SCH ×4 (06:00→20:51)
[2023-07-09 07:13] LABS: Basophils # (auto) 0 10 ^3/uL (0-0.2); Eosinophils # (auto) 0.1 10 ^3/uL (0-0.8); Hemoglobin 7.9 g/dL (13.5-17.5); Lymphocytes # (auto) 1.6 10 ^3/uL (0.4-5.4); Lymphocytes % (auto) 22.8 % (10.0-50.0); Monocytes # (auto) 0.7 10 ^3/uL (0-1.3); Neutrophils # (auto) 4.6 10 ^3/uL (1.6-8.6)
[2023-07-09 07:16] LABS: Basophils % (auto) 0.3 % (0.0-2.0); Hematocrit 24.9 % (41.0-53.0); Mean Corpuscular Hgb Conc. 31.7 g/dL (32.0-36.0); Mean Corpuscular Volume 75.6 fL (80.0-100.0); Monocytes % (auto) 9.6 % (0.0-12.0); Neutrophils % (auto) 66.3 % (37.0-80.0); Nucleated Red Blood Cells % 0.5 %; Red Blood Cells 3.29 10^6/uL (4.5-5.90)
[2023-07-09 07:38] LABS: % Iron Saturation 5.1 % (20-55)
[2023-07-09 07:40] LABS: Alanine Aminotransferase 102 U/L (7-40); Albumin 3.8 g/dL (3.2-4.8); Alkaline Phosphatase 123 U/L (46-116); Anion Gap 9 (5-15); Aspartate Aminotransferase 98 U/L (13-40); Blood Urea Nitrogen 7 mg/dL (9-23); Calcium 8.3 mg/dL (8.5-10.1); Carbon Dioxide 21 mmol/L (20-30); Chloride 110 mmol/L (98-107); Glucose 97 mg/dL (74-106); Potassium 3.6 mmol/L (3.5-5.1); Sodium 140 mmol/L (136-145)
[2023-07-09 07:41] LABS: Bilirubin, Total 0.9 mg/dL (0.2-1.0)
[2023-07-09 08:33] LABS: Erythrocyte Sedimentation Rate 24 mm/hr (0-20)
[2023-07-09 09:55] LABS: Hypochromia Slight; Platelet Estimate Adequate
[2023-07-09 09:56] LABS: Anisocytosis Moderate
[2023-07-09] MEDS ORDERED: PATIENTS OWN MEDICATION (Amlodipine Besylate 10 MG) PO SCH (10:00)
[2023-07-09 11:26] VITALS: BP 141/73; PULSE 88
[2023-07-09] MEDS: PANTOPRAZOLE 40 MG/10 ML VIAL INJ IV SCH (11:33)
[2023-07-09] MEDS: CYANOCOBALAMIN 500 MCG TAB PO SCH (11:33)
[2023-07-09] MEDS: amLODIPine BESYLATE 5 MG TAB PO SCH (11:34)
[2023-07-09] MEDS ORDERED: IRON SUCROSE COMPLEX 100 ML IV SCH (12:00)
[2023-07-09 13:00] VITALS: BP 141/73; PULSE 85; RESP 17; TEMP 97.8; O2SAT 100
[2023-07-09] MEDS: SODIUM CHLORIDE 0.9% 1,000 ML IV SCH (14:42)
[2023-07-09] MEDS ORDERED: POLYETHYLENE GLYCOL 17 GM PWDR PO ONE (15:15)
[2023-07-09 17:00] VITALS: BP 124/63; PULSE 90; RESP 14; TEMP 98.3; O2SAT 98
[2023-07-09] MEDS ORDERED: GADOTERATE MEG 10 MMOL/20ml INJ (0.5MMOL/ml) IV ONE (18:39)
[2023-07-09 20:17] VITALS: PULSE 81; RESP 19; O2SAT 96
[2023-07-09] MEDS: ATORVASTATIN 20 MG TAB PO SCH (20:51)
[2023-07-09 22:00] VITALS: BP 127/69; PULSE 81; RESP 19; TEMP 98.2; O2SAT 96
[2023-07-10] VITALS (7 sets, daily range): BP systolic 104–134; BP diastolic 53–71; PULSE 72–93; RESP 16–20; TEMP 96–98.7; O2SAT 96–99
[2023-07-10] MEDS: SODIUM CHLORIDE 0.9% 1,000 ML IV SCH (01:30)
[2023-07-10] MEDS: SUCRALFATE 1 GM TAB PO SCH ×4 (05:19→21:42)
[2023-07-10 05:21] LABS: Basophils # (auto) 0 10 ^3/uL (0-0.2); Eosinophils # (auto) 0.1 10 ^3/uL (0-0.8); Lymphocytes # (auto) 1.5 10 ^3/uL (0.4-5.4); Mean Corpuscular Hgb Conc. 31.6 g/dL (32.0-36.0); Monocytes # (auto) 0.8 10 ^3/uL (0-1.3); White Blood Cell 7.6 10^3/uL (4.4-10.8)
[2023-07-10 05:24] LABS: Basophils % (auto) 0.2 % (0.0-2.0); Eosinophils % (auto) 1.7 % (0.0-7.0); Hematocrit 25.4 % (41.0-53.0); Lymphocytes % (auto) 19.2 % (10.0-50.0); Mean Corpuscular Hemoglobin 24.1 pg (28.0-32.0); Mean Corpuscular Volume 76.4 fL (80.0-100.0); Monocytes % (auto) 10.2 % (0.0-12.0); Neutrophils # (auto) 5.2 10 ^3/uL (1.6-8.6); Neutrophils % (auto) 68.7 % (37.0-80.0); Nucleated Red Blood Cells % 0.3 %; Red Blood Cells 3.33 10^6/uL (4.5-5.90)
[2023-07-10 05:28] LABS: Alanine Aminotransferase 99 U/L (7-40); Albumin 3.6 g/dL (3.2-4.8); Alkaline Phosphatase 122 U/L (46-116); Anion Gap 8 (5-15); Aspartate Aminotransferase 90 U/L (13-40); BUN/Creatinine Ratio 6.3 (10.0-20.0); Blood Urea Nitrogen 5 mg/dL (9-23); Calcium 8.1 mg/dL (8.5-10.1); Carbon Dioxide 20 mmol/L (20-30); Chloride 113 mmol/L (98-107); Cholesterol 82 mg/dL (< 200); Glucose 99 mg/dL (74-106); HDL Cholesterol 23 mg/dL (40-59); LDL Cholesterol 48 mg/dL (< 100); Potassium 3.6 mmol/L (3.5-5.1); Sodium 141 mmol/L (136-145); Triglycerides 78 mg/dL (< 150)
[2023-07-10 05:29] LABS: Bilirubin, Total 0.6 mg/dL (0.2-1.0); Total Protein 6.7 g/dL (5.7-8.2)
[2023-07-10 05:32] LABS: Red Cell Distribution Width 24.8 % (11.8-14.3)
[2023-07-10 08:06] LABS: Haptoglobin 64 mg/dL (32-363)
[2023-07-10 09:03] LABS: Platelet Estimate Adequate
[2023-07-10 09:04] LABS: Anisocytosis Moderate; Hypochromia Slight
[2023-07-10] MEDS: PANTOPRAZOLE 40 MG/10 ML VIAL INJ IV SCH (10:00)
[2023-07-10] MEDS: amLODIPine BESYLATE 5 MG TAB PO SCH (10:00)
[2023-07-10] MEDS: NICOTINE 21MG/24 HR TOPICAL PATCH TD SCH (10:00)
[2023-07-10] MEDS: CYANOCOBALAMIN 500 MCG TAB PO SCH (10:00)
[2023-07-10 11:06] LABS: Anti-Nuclear Antibody Direct Negative (Negative)
[2023-07-10 14:45] LABS: Hepatitis B Surface Antigen Negative (Negative)
[2023-07-10 15:05] LABS: Hepatitis A Ab IgM Negative
[2023-07-10 15:06] LABS: Hepatitis B Core IgM Negative
[2023-07-10 15:14] LABS: Hepatitis C Antibody Positive (Negative)
[2023-07-10] MEDS: ATORVASTATIN 20 MG TAB PO SCH (21:42)
[2023-07-11 05:00] VITALS: BP 109/54; PULSE 75; RESP 17; TEMP 98.2; O2SAT 99
[2023-07-11] MEDS: SUCRALFATE 1 GM TAB PO SCH ×2 (06:00→13:22)
[2023-07-11 07:56] LABS: Basophils # (auto) 0 10 ^3/uL (0-0.2); Basophils % (auto) 0.4 % (0.0-2.0); Eosinophils # (auto) 0.2 10 ^3/uL (0-0.8); Eosinophils % (auto) 2.9 % (0.0-7.0); Nucleated Red Blood Cells % 0.1 %
[2023-07-11 07:58] LABS: Hematocrit 27.4 % (41.0-53.0); Hemoglobin 8.7 g/dL (13.5-17.5); Lymphocytes # (auto) 1.4 10 ^3/uL (0.4-5.4); Lymphocytes % (auto) 22.3 % (10.0-50.0); Mean Corpuscular Hemoglobin 24.4 pg (28.0-32.0); Mean Corpuscular Hgb Conc. 31.7 g/dL (32.0-36.0); Mean Corpuscular Volume 76.9 fL (80.0-100.0); Monocytes # (auto) 0.7 10 ^3/uL (0-1.3); Monocytes % (auto) 10.5 % (0.0-12.0); Neutrophils % (auto) 63.9 % (37.0-80.0); Red Blood Cells 3.57 10^6/uL (4.5-5.90); Red Cell Distribution Width 25.6 % (11.8-14.3); White Blood Cell 6.2 10^3/uL (4.4-10.8)
[2023-07-11 08:00] VITALS: PULSE 90; RESP 19; O2SAT 98
[2023-07-11 08:14] LABS: Alanine Aminotransferase 102 U/L (7-40); Alkaline Phosphatase 135 U/L (46-116); Anion Gap 10 (5-15); Blood Urea Nitrogen 8 mg/dL (9-23); Calcium 8.5 mg/dL (8.5-10.1); Carbon Dioxide 20 mmol/L (20-30); Chloride 111 mmol/L (98-107); Glucose 98 mg/dL (74-106); Potassium 3.8 mmol/L (3.5-5.1); Sodium 141 mmol/L (136-145)
[2023-07-11 08:15] LABS: Albumin 3.8 g/dL (3.2-4.8); Aspartate Aminotransferase 91 U/L (13-40); Bilirubin, Total 0.5 mg/dL (0.2-1.0); Total Protein 7.1 g/dL (5.7-8.2)
[2023-07-11 09:00] VITALS: BP 123/70; PULSE 90; RESP 19; TEMP 98; O2SAT 98
[2023-07-11 09:18] LABS: Platelet Estimate Adequate
[2023-07-11 09:19] LABS: Anisocytosis Slight; Hypochromia Slight; Ovalocytes FEW
[2023-07-11 09:20] LABS: Tear Drop Cells FEW
[2023-07-11] MEDS: NICOTINE 21MG/24 HR TOPICAL PATCH TD SCH (10:00)
[2023-07-11] MEDS: PANTOPRAZOLE 40 MG/10 ML VIAL INJ IV SCH (10:04)
[2023-07-11] MEDS: amLODIPine BESYLATE 5 MG TAB PO SCH (10:05)
[2023-07-11] MEDS: CYANOCOBALAMIN 500 MCG TAB PO SCH (10:05)
[2023-07-11] MEDS ORDERED: SODIUM FERR GLUC 62.5MG/5ML 125 MG in SODIUM CHL 0.9% 100 ML IV SCH ×4 (12:00)
[2023-07-11 13:00] VITALS: BP 121/81; PULSE 81; RESP 18; TEMP 97.4; O2SAT 100
[2023-07-11 16:54] VITALS: BP 121/81; PULSE 81; RESP 18; TEMP 97.4; O2SAT 100
[2023-07-12] MEDS ORDERED: ACET-1304 PO (15:46)
== END 2023-07-11 17:40 | disposition home or self-care (01) | DRG 812 ==
LOC: ER 10:44 → OVERFLOW 15:50 → EAST 07-09 08:20
PROVIDERS: ADMIT Internal Medicine; ATTEND Internal Medicine
PROC: 30233N1 Transfusion of Nonautologous Red Blood Cells into Peripheral Vein, Percutaneous Approach (ICD-10-PCS; principal; 2023-07-08)
DX: D50.9 Iron deficiency anemia, unspecified (principal); I10 Essential (primary) hypertension; E78.5 Hyperlipidemia, unspecified; F17.210 Nicotine dependence, cigarettes, uncomplicated; K74.60 Unspecified cirrhosis of liver; K80.20 Calculus of gallbladder without cholecystitis without obstruction; Z88.2 Allergy status to sulfonamides; N28.1 Cyst of kidney, acquired
CPT/HCPCS: 36415; 74176; 74183; 76705; 76775; 80053; 80061; 80074; 81001; 82270; 82728; 83010; 83540; 83550; 83615; 85025; 85045; 85652; 86038; 86850; 86900; 86901; 86920; 87081; C9113; G0378; J1756

== ENCOUNTER → 2023-07-08 | Outpatient (CLI) | payer OTHER, MEDICAID ==
[~2023-07-08] MED LIST changes: -ASPI81CH43; -DOXY-448 PO; +LEVO500T91 PO; +PANT40T PO; +SUCR1TAB22 OR
[2023-07-08 08:19] LABS: Basophils # (auto) 0 10 ^3/uL (0-0.2); Eosinophils # (auto) 0.1 10 ^3/uL (0-0.8); Monocytes # (auto) 0.6 10 ^3/uL (0-1.3); Neutrophils # (auto) 3.2 10 ^3/uL (1.6-8.6); Red Blood Cells 2.59 10^6/uL (4.5-5.90)
[2023-07-08 08:22] LABS: Basophils % (auto) 0.4 % (0.0-2.0); Eosinophils % (auto) 1.5 % (0.0-7.0); Hematocrit 18.3 % (41.0-53.0); Lymphocytes # (auto) 1.6 10 ^3/uL (0.4-5.4); Lymphocytes % (auto) 28.4 % (10.0-50.0); Mean Corpuscular Hemoglobin 21.4 pg (28.0-32.0); Mean Corpuscular Hgb Conc. 30.3 g/dL (32.0-36.0); Mean Corpuscular Volume 70.5 fL (80.0-100.0); Monocytes % (auto) 11.5 % (0.0-12.0); Neutrophils % (auto) 58.2 % (37.0-80.0); Nucleated Red Blood Cells % 0.4 %; White Blood Cell 5.6 10^3/uL (4.4-10.8)
[2023-07-08 08:30] LABS: Red Cell Distribution Width 21.7 % (11.8-14.3)
[2023-07-08 08:36] LABS: Hemoglobin 5.5 g/dL (13.5-17.5)
[2023-07-08 10:02] LABS: Anisocytosis Slight; Hypochromia Moderate; Ovalocytes MODERATE; Platelet Estimate Adequate
== END | disposition home or self-care (01) ==
LOC: LAB 07:59
PROVIDERS: ATTEND Student in an Organized Health Care Education/Training Program
DX: D50.9 Iron deficiency anemia, unspecified (principal); D63.8 Anemia in other chronic diseases classified elsewhere; Z92.84 Personal history of unintended awareness under general anesthesia
CPT/HCPCS: 36415; 85025

== ENCOUNTER 2023-07-12 12:21 | Emergency (ER) | payer OTHER, MEDICAID ==
[~2023-07-12] VITALS: Ht 175.3 cm; Wt 82.8 kg
[2023-07-12 13:45] VITALS: BP 133/62; PULSE 87; RESP 20; TEMP 99.8; O2SAT 100
[2023-07-12] MEDS ORDERED: ACET-1304 PO (15:46)
== END 2023-07-12 15:54 | disposition home or self-care (01) ==
LOC: ER 12:21
DX: I82.602 Acute embolism and thrombosis of unspecified veins of left upper extremity (principal); F17.210 Nicotine dependence, cigarettes, uncomplicated; E78.5 Hyperlipidemia, unspecified; I10 Essential (primary) hypertension; Z88.2 Allergy status to sulfonamides
CPT/HCPCS: 93971

== ENCOUNTER → 2023-07-23 | Outpatient (CLI) | payer OTHER, MEDICAID ==
[~2023-07-23] MED LIST changes: +ACET-1304 PO
[2023-07-23 10:18] LABS: Hemoglobin 7.8 g/dL (13.5-17.5)
[2023-07-23 10:21] LABS: Hematocrit 24.9 % (41.0-53.0)
== END | disposition home or self-care (01) ==
LOC: LAB 09:41
PROVIDERS: ATTEND Student in an Organized Health Care Education/Training Program
DX: D62 Acute posthemorrhagic anemia (principal); D64.9 Anemia, unspecified
CPT/HCPCS: 36415; 85014; 85018

== ENCOUNTER → 2023-08-06 | Outpatient (CLI) | payer OTHER, MEDICAID ==
[2023-08-06 10:52] LABS: Basophils # (auto) 0 10 ^3/uL (0-0.2); Eosinophils # (auto) 0.1 10 ^3/uL (0-0.8); Lymphocytes # (auto) 1.4 10 ^3/uL (0.4-5.4); Mean Corpuscular Hemoglobin 24.9 pg (28.0-32.0); Monocytes # (auto) 0.6 10 ^3/uL (0-1.3); Neutrophils # (auto) 2.1 10 ^3/uL (1.6-8.6); Nucleated Red Blood Cells % 0.1 %
[2023-08-06 10:54] LABS: Basophils % (auto) 0.7 % (0.0-2.0); Eosinophils % (auto) 1.7 % (0.0-7.0); Hematocrit 29.6 % (41.0-53.0); Hemoglobin 8.9 g/dL (13.5-17.5); Lymphocytes % (auto) 33.9 % (10.0-50.0); Mean Corpuscular Volume 83.2 fL (80.0-100.0); Monocytes % (auto) 13.7 % (0.0-12.0); Red Blood Cells 3.56 10^6/uL (4.5-5.90); White Blood Cell 4.2 10^3/uL (4.4-10.8)
[2023-08-06 10:56] LABS: Red Cell Distribution Width 21.3 % (11.8-14.3)
[2023-08-06 11:09] LABS: INR 1.13 (0.9-1.15); Partial Thromboplastin Time 28.5 SEC (24.5-34.5); Prothrombin Time 11.8 sec (9.3-11.8)
[2023-08-06 11:29] LABS: Alanine Aminotransferase 139 U/L (7-40); Albumin 4.2 g/dL (3.2-4.8); Alkaline Phosphatase 139 U/L (46-116); Anion Gap 6 (5-15); Aspartate Aminotransferase 129 U/L (13-40); BUN/Creatinine Ratio 9.5 (10.0-20.0); Blood Urea Nitrogen 9 mg/dL (9-23); Calcium 9.8 mg/dL (8.5-10.1); Carbon Dioxide 26 mmol/L (20-30); Chloride 109 mmol/L (98-107); Glucose 99 mg/dL (74-106); Potassium 3.9 mmol/L (3.5-5.1); Sodium 141 mmol/L (136-145)
[2023-08-06 11:31] LABS: Bilirubin, Total 0.4 mg/dL (0.2-1.0); Total Protein 7.8 g/dL (5.7-8.2)
== END | disposition home or self-care (01) ==
LOC: LAB 10:13
PROVIDERS: ATTEND Internal Medicine Gastroenterology
DX: R94.5 Abnormal results of liver function studies (principal); K73.9 Chronic hepatitis, unspecified
CPT/HCPCS: 36415; 80053; 82105; 85025; 85610; 85730

== ENCOUNTER → 2023-12-05 | Day surgery (SDC) | payer OTHER, MEDICAID ==
[2023-12-02 10:51] LABS: Basophils # (auto) 0 10 ^3/uL (0-0.2); Basophils % (auto) 0.6 % (0.0-2.0); Eosinophils # (auto) 0.1 10 ^3/uL (0-0.8); Eosinophils % (auto) 1.4 % (0.0-7.0); Hematocrit 39.8 % (41.0-53.0); Hemoglobin 12.8 g/dL (13.5-17.5); Lymphocytes # (auto) 1.9 10 ^3/uL (0.4-5.4); Lymphocytes % (auto) 26.9 % (10.0-50.0); Mean Corpuscular Hemoglobin 29.8 pg (28.0-32.0); Monocytes # (auto) 0.9 10 ^3/uL (0-1.3); Monocytes % (auto) 13.3 % (0.0-12.0); Neutrophils % (auto) 57.8 % (37.0-80.0); Nucleated Red Blood Cells % 0.1 %; Red Blood Cells 4.28 10^6/uL (4.5-5.90); Red Cell Distribution Width 13.4 % (11.8-14.3); White Blood Cell 6.9 10^3/uL (4.4-10.8)
[2023-12-02 11:06] LABS: INR 1.08 (0.9-1.15); Partial Thromboplastin Time 28.7 SEC (24.5-34.5); Prothrombin Time 11.4 sec (9.3-11.8)
[2023-12-02 12:20] LABS: Alanine Aminotransferase 24 U/L (7-40); Albumin 4.5 g/dL (3.2-4.8); Alkaline Phosphatase 94 U/L (46-116); Anion Gap 4 (5-15); Aspartate Aminotransferase 28 U/L (13-40); BUN/Creatinine Ratio 11.3 (10.0-20.0); Bilirubin, Total 0.3 mg/dL (0.2-1.0); Blood Urea Nitrogen 11 mg/dL (9-23); Calcium 10.3 mg/dL (8.5-10.1); Carbon Dioxide 28 mmol/L (20-30); Chloride 109 mmol/L (98-107); Glucose 88 mg/dL (74-106); Potassium 3.5 mmol/L (3.5-5.1); Sodium 141 mmol/L (136-145)
[2023-12-02 12:21] LABS: Total Protein 7.9 g/dL (5.7-8.2)
[~2023-12-05] VITALS: Ht 177.8 cm; Wt 83.5 kg
[~2023-12-05] MED LIST changes: +CHOL25CH3 PO; +FER300LQ PO; +KETAMINE 50mg/ML 1ml syringe ONE; +MIDAZOLAM HCL 2MG/2ML 2ml VIAL (1mg/ml) ONE; +MIDAZOLAM HCL 5 MG/ML-1ML VIAL ONE; +ONDANSETRON HCL 4 MG/2 ML VIAL IV ONE; +ONDANSETRON HCL 4 MG/2 ML VIAL ONE; +PROPOFOL 10 MG/ML 20 ML IV ONE; +SODIUM CHLORIDE LOCK 0 ML ONE; -SUCR1TAB22 OR; +SUCR1TAB31 OR; +diphenhdrAMINE HCL 50 MG/1 ML VL ONE; +fentaNYL CITRATE 100 MCG/2 ML VL ONE
[2023-12-05 13:35] VITALS: TEMP 97.3; O2SAT 99
[2023-12-05 14:17] VITALS: BP 129/68; PULSE 64; RESP 14; O2SAT 96
== END | disposition home or self-care (01) ==
LOC: GI 09:17
PROVIDERS: ATTEND Internal Medicine Gastroenterology
DX: D50.9 Iron deficiency anemia, unspecified (principal); K63.5 Polyp of colon; K64.8 Other hemorrhoids; I10 Essential (primary) hypertension; F41.9 Anxiety disorder, unspecified; F17.210 Nicotine dependence, cigarettes, uncomplicated; Z79.01 Long term (current) use of anticoagulants; Z86.010 Personal history of colon polyps; Z85.46 Personal history of malignant neoplasm of prostate; Z88.1 Allergy status to other antibiotic agents; Z82.49 Family history of ischemic heart disease and other diseases of the circulatory system; Z80.0 Family history of malignant neoplasm of digestive organs; Z80.42 Family history of malignant neoplasm of prostate; Z83.3 Family history of diabetes mellitus
CPT/HCPCS: 36415; 45380; 80053; 85025; 85610; 85730; 88305; J2250; J2405; J2704; J3010; J7030

== ENCOUNTER → 2024-09-03 | Outpatient (CLI) | payer OTHER, MEDICAID ==
[~2024-09-03] MED LIST changes: -KETAMINE 50mg/ML 1ml syringe ONE; -MIDAZOLAM HCL 2MG/2ML 2ml VIAL (1mg/ml) ONE; -MIDAZOLAM HCL 5 MG/ML-1ML VIAL ONE; -ONDANSETRON HCL 4 MG/2 ML VIAL IV ONE; -ONDANSETRON HCL 4 MG/2 ML VIAL ONE; -PROPOFOL 10 MG/ML 20 ML IV ONE; -SODIUM CHLORIDE LOCK 0 ML ONE; -diphenhdrAMINE HCL 50 MG/1 ML VL ONE; -fentaNYL CITRATE 100 MCG/2 ML VL ONE
[2024-09-03 07:28] LABS: Basophils # (auto) 0 10 ^3/uL (0-0.2); Basophils % (auto) 0.5 % (0.0-2.0); Eosinophils # (auto) 0.1 10 ^3/uL (0-0.8); Eosinophils % (auto) 1.7 % (0.0-7.0); Hematocrit 38.4 % (41.0-53.0); Hemoglobin 12.5 g/dL (13.5-17.5); Lymphocytes # (auto) 1.2 10 ^3/uL (0.4-5.4); Lymphocytes % (auto) 21.7 % (10.0-50.0); Mean Corpuscular Hemoglobin 25.9 pg (28.0-32.0); Mean Corpuscular Hgb Conc. 32.7 g/dL (32.0-36.0); Mean Corpuscular Volume 79.4 fL (80.0-100.0); Monocytes # (auto) 0.6 10 ^3/uL (0-1.3); Monocytes % (auto) 10.7 % (0.0-12.0); Neutrophils # (auto) 3.6 10 ^3/uL (1.6-8.6); Neutrophils % (auto) 65.4 % (37.0-80.0); Nucleated Red Blood Cells % 0.1 %; Platelet Count (auto) 193 10^3/uL (140-450); Red Blood Cells 4.84 10^6/uL (4.5-5.90); Red Cell Distribution Width 14.6 % (11.8-14.3); White Blood Cell 5.5 10^3/uL (4.4-10.8)
[2024-09-03 07:43] LABS: INR 1.04 (0.9-1.15)
[2024-09-03 08:15] LABS: Alanine Aminotransferase 28 U/L (7-40); Alkaline Phosphatase 77 U/L (46-116); Anion Gap 7 (5-15); Aspartate Aminotransferase 27 U/L (13-40); BUN/Creatinine Ratio 14.5 (10.0-20.0); Blood Urea Nitrogen 17 mg/dL (9-23); Calcium 10.1 mg/dL (8.7-10.4); Carbon Dioxide 29 mmol/L (20-31); Chloride 106 mmol/L (98-107); Sodium 142 mmol/L (136-145); Triglycerides 114 mg/dL (< 150)
[2024-09-03 08:16] LABS: Bilirubin, Total 0.6 mg/dL (0.2-1.0); Cholesterol 185 mg/dL (< 200)
[2024-09-03 08:19] LABS: Albumin 4.8 g/dL (3.2-4.8); Glucose 116 mg/dL (74-106); HDL Cholesterol 38 mg/dL (40-59); LDL Cholesterol 126 mg/dL (< 100); Potassium 3.3 mmol/L (3.5-5.1)
[2024-09-03 08:44] LABS: % Iron Saturation 5.5 % (20-55)
== END | disposition home or self-care (01) ==
LOC: LAB 06:47
PROVIDERS: ATTEND Internal Medicine Gastroenterology
DX: K74.60 Unspecified cirrhosis of liver (principal); B18.2 Chronic viral hepatitis C; D64.9 Anemia, unspecified; E78.5 Hyperlipidemia, unspecified; Z79.899 Other long term (current) drug therapy
CPT/HCPCS: 36415; 80053; 80061; 82105; 82140; 83036; 83540; 83550; 85025; 85610